=== PATIENT | female | born 1985 | race Caucasian/White ===

== ENCOUNTER → 2017-08-23 | Outpatient (CLI) | payer BC ==
[~2017-08-23] MED LIST: ACID1TAB PO; AZIT-21 PO; CATHETER FLUSH 10 ML SYR IV PRN; HYDR-1231 PO; IOHEXOL 350 MG/ML 100 ML (OMNIPAQUE 350) VIAL IV ONE; NORG1TAB6 PO; NS 100 ML (IVPB) BAG IV ONE; OCP; PANT40TA2 PO
--- NOTE | 2017-08-23 10:56 | Diagnostic Imaging Report ---
PROCEDURE: CT neck soft tissue with contrast. TECHNIQUE: Multiple contiguous axial images were obtained through the neck after the administration of contrast. INDICATION: Right neck swelling. 75 mL of Omnipaque 350 administered intravenously. FINDINGS: There are enlarged lymph nodes in the upper right cervical chain, level II lymph nodes up to 2.0 x 1.5 x 1.6 cm in size. Slightly smaller other lymph nodes are seen around it. The 2-cm lymph node has a central hypodensity suggestive of early liquefaction. Microabscess formation in its center versus necrosis is possible. There is no drainable abscess. There is significant soft tissue edema in the right side of the neck superiorly. The mucosal pharyngeal space is symmetric. The carotid and jugular vascular enhancement is grossly unremarkable. The lung apices appear clear. The osseous structures appear grossly unremarkable. IMPRESSION: Mildly enlarged upper right cervical chain lymph nodes with mild central necrosis or microabscess formation seen. There is no drainable abscess noted at this time. Dictated by: Dictated on workstation # [id number]
== END ==
LOC: RAD 10:13
PROVIDERS: ATTEND Nurse Practitioner Family
DX: R59.0 Localized enlarged lymph nodes (principal)
CPT/HCPCS: 36415; 70491; 86735; 87252

== ENCOUNTER → 2018-01-10 | Outpatient (CLI) | payer BC ==
[~2018-01-10] MED LIST changes: -CATHETER FLUSH 10 ML SYR IV PRN; -IOHEXOL 350 MG/ML 100 ML (OMNIPAQUE 350) VIAL IV ONE; -NS 100 ML (IVPB) BAG IV ONE
--- NOTE | 2018-01-10 12:32 | Diagnostic Imaging Report ---
PROCEDURE: CT maxillofacial without contrast. TECHNIQUE: Multiple contiguous axial images were obtained through the facial bones without the use of intravenous contrast. INDICATION: Left mandibular swelling. The mandible appears intact. No fracture is seen. The zygomatic arches are intact. The maxillary sinus clinton and nasal bones are intact. The orbital clinton appear intact. The visualized paranasal sinuses are clear. Mastoids are well aerated. IMPRESSION: No facial bone fracture is detected. Dictated by: Dictated on workstation # [id number]
== END ==
LOC: RAD 11:59
PROVIDERS: ATTEND Nurse Practitioner Family
DX: R22.0 Localized swelling, mass and lump, head (principal)
CPT/HCPCS: 70486